=== PATIENT | male | born 1980 | race Caucasian/White ===

== ENCOUNTER 2019-11-06 09:49 | Outpatient (CLI) | payer OTHER, SELFPAY ==
[2019-11-06 10:45] LABS: Blood Urea Nitrogen 20 mg/dL (9-20); Calcium 9.8 mg/dL (8.4-10.2); Carbon Dioxide 33 mmol/L (22-30); Chloride 99 mmol/L (98-107); Estimated Glomerular Filt Rate > 60; Glucose 156 mg/dL (75-110); Potassium 4.3 mmol/L (3.4-5.0); Sodium 137 mmol/L (137-145)
[2019-11-06 11:04] LABS: Creatinine Urine 83.3 mg/dL
[2019-11-06 11:08] LABS: MALB Creatinine Ratio 8.6 mg/g (0-30); Microalbumin Urine Random 7.2 mg/L (0-16.7)
[2019-11-06 11:20] LABS: Free T4 Free Thyroxine 1.11 ng/mL (0.78-2.19)
== END 2019-11-06 09:50 | disposition home or self-care (01) ==
PROVIDERS: Visit Provider Physician Assistant
DX: E03.9 Hypothyroidism, unspecified (principal); E10.65 Type 1 diabetes mellitus with hyperglycemia
CPT/HCPCS: 36415; 80048; 82043; 84439; 84443

== ENCOUNTER 2020-03-06 11:55 | Outpatient (CLI) | payer OTHER, SELFPAY ==
[2020-03-06 13:17] LABS: Free T4 Free Thyroxine 1.04 ng/mL (0.78-2.19)
== END 2020-03-06 11:56 | disposition home or self-care (01) ==
LOC: ANHLAB 11:56
PROVIDERS: Visit Provider Physician Assistant
DX: E03.9 Hypothyroidism, unspecified (principal)
CPT/HCPCS: 36415; 84439; 84443

== ENCOUNTER 2020-09-16 09:11 | Outpatient (CLI) | payer OTHER, SELFPAY ==
[2020-09-16 12:32] LABS: Alanine Aminotransferase 41 U/L (4-50); Albumin Level 4.5 g/dL (3.5-5.1); Alkaline Phosphatase 80 U/L (38-126); Anion Gap 5 mmol/L (8-16); Aspartate Amino Transferase 32 U/L (17-59); Bilirubin,Total 0.8 mg/dL (0.2-1.3); Blood Urea Nitrogen 22 mg/dL (9-20); Calcium 9.8 mg/dL (8.4-10.2); Carbon Dioxide 30 mmol/L (22-30); Chloride 108 mmol/L (98-107); Estimated Glomerular Filt Rate > 60; Glucose 67 mg/dL (75-110); Potassium 4.5 mmol/L (3.4-5.0); Sodium 143 mmol/L (137-145)
[2020-09-16 12:49] LABS: Free T4 Free Thyroxine 0.89 ng/mL (0.78-2.19); Vitamin D 25 Hydroxy 45.3 ng/mL
[2020-09-16 13:02] LABS: Creatinine Urine 159.6 mg/dL
[2020-09-16 13:06] LABS: MALB Creatinine Ratio 5.7 mg/g (0-30); Microalbumin Urine Random 9.1 mg/L (0-16.7)
[2020-09-18 12:32] LABS: Sex Hormone Binding Globulin 33 nmol/L (10-50)
[2020-09-19 11:43] LABS: Testosterone Total 636 ng/dL (250-1100)
== END 2020-09-16 09:12 | disposition home or self-care (01) ==
LOC: ANHWCLAB 09:15
PROVIDERS: Visit Provider Internal Medicine Endocrinology, Diabetes & Metabolism
DX: E03.9 Hypothyroidism, unspecified (principal); E10.65 Type 1 diabetes mellitus with hyperglycemia
CPT/HCPCS: 36415; 80053; 82043; 82306; 84270; 84403; 84439; 84443

== ENCOUNTER 2021-06-22 09:15 | Outpatient (RCR) | payer SELFPAY ==
[2021-05-05 08:00] VITALS: BMI 28.1
== END 2021-07-20 13:08 | disposition home or self-care (01) ==
LOC: ANHDMC 09:15
PROVIDERS: Visit Provider Nurse Practitioner Family
DX: E10.65 Type 1 diabetes mellitus with hyperglycemia (principal); Z71.3 Dietary counseling and surveillance; Z71.89 Other specified counseling
CPT/HCPCS: 97802; G0108

== ENCOUNTER 2021-10-20 09:08 | Outpatient (CLI) | payer OTHER, SELFPAY ==
[2021-10-20 16:45] LABS: Alanine Aminotransferase 31 U/L (6-50); Albumin Level 4.2 g/dL (3.5-5.1); Alkaline Phosphatase 77 U/L (38-126); Anion Gap 8 mmol/L (8-16); Aspartate Amino Transferase 66 U/L (17-59); Bilirubin,Total 1.1 mg/dL (0.2-1.3); Blood Urea Nitrogen 20 mg/dL (9-20); Calcium 9.2 mg/dL (8.4-10.2); Carbon Dioxide 27 mmol/L (22-30); Chloride 105 mmol/L (98-107); Cholesterol 197 mg/dL (0-200); Estimated Glomerular Filt Rate > 60; Glucose 61 mg/dL (65-110); HDL Direct 42 mg/dL; Sodium 140 mmol/L (137-145); Triglycerides 150 mg/dL (<150)
[2021-10-20 16:52] LABS: Creatinine Urine 345.9 mg/dL
[2021-10-20 16:57] LABS: LDL Cholesterol Direct 110 mg/dL; MALB Creatinine Ratio 7.7 mg/g (0-30); Microalbumin Urine Random 26.7 mg/L (0-16.7)
[2021-10-20 17:00] LABS: Free T4 Free Thyroxine 1.18 ng/mL (0.78-2.19)
== END 2021-10-20 09:09 | disposition home or self-care (01) ==
LOC: ANHWCLAB 09:11
PROVIDERS: Referring Provider Nurse Practitioner Family; Visit Provider Nurse Practitioner Family
DX: E10.65 Type 1 diabetes mellitus with hyperglycemia (principal)
CPT/HCPCS: 36415; 80053; 80061; 82043; 84439; 84443

== ENCOUNTER 2022-04-27 08:44 | Outpatient (CLI) | payer OTHER, SELFPAY ==
[2022-04-27 13:04] LABS: Hematocrit 41.2 % (42.0-52.0); Hemoglobin 14.5 g/dL (14.0-18.0); Mean Corpuscular HGB Conc 35.2 g/dl (32-36); Mean Corpuscular Hemoglobin 31.2 pg (26-34); Mean Corpuscular Volume 88.6 fl (80-100); Mean Platelet Volume 9.7 fl (7.4-10.4); Platelet Count Result 244 k/mm3 (150-375); Red Blood Count 4.65 M/mm3 (4.6-6.20); Red Cell Distribution Width 12.4 % (11.5-14.5); White Blood Count 4.7 K/mm3 (4.5-10.0)
[2022-04-27 13:36] LABS: Free T4 Free Thyroxine 0.72 ng/mL (0.78-2.19)
[2022-04-27 13:38] LABS: Creatinine Urine 207.9 mg/dL
[2022-04-27 14:06] LABS: MALB Creatinine Ratio < 2.9 mg/g (0-30); Microalbumin Urine Random < 6.0 mg/L (0-16.7)
== END 2022-04-27 08:45 | disposition home or self-care (01) ==
LOC: ANHWCLAB 08:46
PROVIDERS: Visit Provider Nurse Practitioner Family
DX: E10.69 Type 1 diabetes mellitus with other specified complication (principal); E78.5 Hyperlipidemia, unspecified; E10.65 Type 1 diabetes mellitus with hyperglycemia; E03.9 Hypothyroidism, unspecified
CPT/HCPCS: 36415; 82043; 84439; 84443; 85027

== ENCOUNTER 2023-06-21 12:10 | Outpatient (CLI) | payer OTHER, SELFPAY ==
[2023-06-21 13:18] LABS: Thyroid Stimulating Hormone < 0.015 uIU/mL (0.465-4.680)
[2023-06-21 13:25] LABS: Free T4 Free Thyroxine 2.33 ng/mL (0.78-2.19)
[2023-06-25 12:55] LABS: Testosterone Total 451 ng/dL (250-1100)
[2023-06-25 22:56] LABS: Testosterone Free 67.6 pg/mL (46.0-224.0)
[2023-06-29 11:00] LABS: Immunoglobulin A 173 mg/dL (47-310); TTG IGA AB >250.0 U/mL (<15.0)
== END 2023-06-21 12:11 | disposition home or self-care (01) ==
LOC: ANHLAB 12:11
PROVIDERS: Visit Provider Nurse Practitioner Family
DX: E29.1 Testicular hypofunction (principal); E03.9 Hypothyroidism, unspecified; E10.69 Type 1 diabetes mellitus with other specified complication; K59.00 Constipation, unspecified; R53.83 Other fatigue
CPT/HCPCS: 36415; 82784; 84402; 84403; 84439; 84443; 86364

== ENCOUNTER 2023-07-19 08:31 | Outpatient (CLI) | payer OTHER, SELFPAY ==
[2023-07-19 08:51] LABS: Hematocrit 42.4 % (42.0-52.0); Hemoglobin 14.2 g/dL (14.0-18.0); Mean Corpuscular HGB Conc 33.5 g/dl (32-36); Mean Corpuscular Hemoglobin 28.7 pg (26-34); Mean Corpuscular Volume 85.7 fl (80-100); Mean Platelet Volume 9.3 fl (7.4-10.4); Platelet Count Result 269 k/mm3 (150-375); Red Blood Count 4.95 M/mm3 (4.6-6.20); Red Cell Distribution Width 11.9 % (11.5-14.5); White Blood Count 4.9 K/mm3 (4.5-10.0)
[2023-07-19 09:02] LABS: Alanine Aminotransferase 78 U/L (6-50); Albumin Level 4.2 g/dL (3.5-5.1); Alkaline Phosphatase 80 U/L (38-126); Anion Gap 6 mmol/L (8-16); Aspartate Amino Transferase 47 U/L (17-59); Bilirubin,Total 1.3 mg/dL (0.2-1.3); Blood Urea Nitrogen 23 mg/dL (9-20); Calcium 9.5 mg/dL (8.4-10.2); Carbon Dioxide 28 mmol/L (22-30); Chloride 104 mmol/L (98-107); Estimated Glomerular Filt Rate > 60; Glucose 162 mg/dL (65-110); Sodium 138 mmol/L (137-145)
[2023-07-19 09:05] LABS: Iron 93 ug/dL (49-181)
[2023-07-19 09:13] LABS: Percent Iron Saturation 35 % (20-50)
[2023-07-19 09:18] LABS: Vitamin D 25 Hydroxy 38.4 ng/mL
[2023-07-19 11:26] LABS: Folic Acid 16.2 ng/mL (2.76->20)
[2023-07-21 21:31] LABS: Alpha-Tocopherol 12.5 mg/L (5.7-19.9); Beta-Gamma Tocopherol <1.0 mg/L (<=4.3); Vitamin A 50 mcg/dL (38-98)
== END 2023-07-19 08:32 | disposition home or self-care (01) ==
LOC: ANHLAB 08:31
PROVIDERS: Visit Provider Nurse Practitioner Family
DX: R89.4 Abnormal immunological findings in specimens from other organs, systems and tissues (principal)
CPT/HCPCS: 36415; 80053; 82306; 82607; 82728; 82746; 83540; 83550; 84446; 84590; 85027

== ENCOUNTER 2023-08-19 09:30 | Outpatient (CLI) | payer OTHER, SELFPAY ==
[2023-08-19 10:28] LABS: Thyroid Stimulating Hormone 0.484 uIU/mL (0.465-4.680)
[2023-08-19 10:41] LABS: Free T4 Free Thyroxine 1.16 ng/mL (0.78-2.19)
== END 2023-08-19 09:31 | disposition home or self-care (01) ==
LOC: ANHLAB 09:31
PROVIDERS: Visit Provider Nurse Practitioner Family
DX: E03.9 Hypothyroidism, unspecified (principal)
CPT/HCPCS: 36415; 84439; 84443

== ENCOUNTER 2023-08-24 05:55 | Day surgery (SDC) | payer OTHER, SELFPAY ==
[2023-07-22 14:38] VITALS: BMI 29.9
[2023-08-03 13:52] VITALS: BMI 29.9
[2023-08-24 07:21] VITALS: BP 141/100; PULSE 80; RESP 18; TEMP 36.6; O2SAT 99
[2023-08-24 07:22] VITALS: BMI 29.5
[2023-08-24 07:38] LABS: Glucose Point of Care 178 mg/dl (65-105)
[2023-08-24] MEDS: LACTATED RINGERS 1,000 ML 150 ML IV CONT (07:40)
--- NOTE | 2023-08-24 07:40 | SUR.PREOP ---
PT WEARING INSULIN PUMP, GLUCOSE MONITOR, AND ANKLE MONITOR.
--- NOTE | 2023-08-24 08:29 | WPDANESEPPF ---
Anes - Initial Pre Proc Eval Procedure: Operation Date: 08/24/23 08:30 Proposed Procedures p Esophagogastroduodenoscopy - Jorge Craig MD Date/Time: 08/24/23 08:29 Surgeon: Jorge Craig MD Pre Op Diagnosis: Abnormal immunological findings in specimens from Patient Data Age: 43 Gender: M Height: 1.73 m Weight: 88.1 kg Last Vital Signs Temp 36.6 C 08/24/23 07:21 Pulse 80 08/24/23 07:21 Resp 18 08/24/23 07:21 BP 141/100 H 08/24/23 07:21 Pulse Ox 99 08/24/23 07:21 O2 Del Method Room Air 08/24/23 07:21 Allergies Allergy/AdvReac Type Severity Reaction Status Date / Time No Known Allergies Allergy Verified 08/24/23 07:16 Home Medications Medication Instructions Recorded Confirmed Type subcutaneous insulin pump (t:slim #1 ea 11/14/19 08/03/23 History X2 Insulin Pump) blood sugar diagnostic (ReliOn #500 ea 03/06/20 08/03/23 Rx Prime Test Strips) blood-glucose meter,continuous #1 ea 01/01/21 08/03/23 Rx (Dexcom G6 Director Of Personnel) blood-glucose sensor (Dexcom G6 #9 ea 07/26/22 08/03/23 Rx Sensor device) blood-glucose transmitter (Dexcom #1 ea 07/26/22 08/03/23 Rx G6 Transmitter device) glucagon 3 mg/actuation nasal 3 mg intranasal ONCE PRN 07/26/22 08/24/23 Rx spray (Baqsimi) hypoglycemia #1 ea insulin lispro 100 unit/mL 80 unit (0.8 mL) continuous 10/26/22 08/24/23 Rx subcutaneous solution (Humalog subcutaneous infusion DAILY #80 mL U-100 Insulin) lisinopril 10 mg tablet 10 mg PO DAILY #90 tabs 01/27/23 08/24/23 Rx levothyroxine 200 mcg capsule 200 mcg PO DAILY #30 caps 06/21/23 08/24/23 Rx blood-glucose meter,continuous #1 ea 07/01/23 08/03/23 Rx (Dexcom G7 Director Of Personnel) blood-glucose sensor (Dexcom G7 #9 ea 02/09/24 03/13/24 Rx Sensor device) rosuvastatin 10 mg tablet See Rx Instructions .Route 08/02/23 08/24/23 Rx .COMPLEX #90 tabs Laboratory Tests 08/24/23 07:36 POC Capillary Glucose 178 H mg/dl (65-105) Patient hx anesthesia problems: none Family hx anesthesia problems: none Results Review: All pre-operative results and documents have been reviewed as part of the pre-operative evaluation. [facility] Past Medical History Medical History Acquired hypothyroidism High blood pressure Type 1 diabetes mellitus with hyperglycemia, with long-term current use of insulin Surgical History Surgical History Hx of knee surgery ACL/meniscus/ left knee Family History Family History Other Diabetes mellitus Family history of thyroid disease Hypertension Social History Social History Smoking status: Never smoker Alcohol intake: never Alcohol use details: 1-2 times per month Substance use: never Substance use type: does not use Lack of Transportation: No Lack of Food: Sometimes True Current Housing: I Have Housing Concerned About Future Housing: No Difficulty Paying Gas/Electric Bills: No Difficulty Paying for Meds: No Currently Unemployed: No Education: High School Diploma/GED Difficulty w/ Childcare or Family Care: No Living arrangements: alone Spiritual care concerns: No Anes - Eval Final PreProcedure Day of Procedure 08/24/23 08:29 Patient weight: overweight Heart: regular rate and rhythm Lungs: clear to auscultation Airway: Mallampati scale class II Neurological: alert and oriented Last oral intake: >/= 8 hours ASA classification: III Emergent: no Anesthetic plan: proceed Anesthesia type and monitoring: general GIVS and standard monitoring Results Review: All pre-operative results and documents have been reviewed as part of the pre-operative evaluation. Informed Consent: The patient's anesthetic plan and its attendant risks and benefits were discu
--- NOTE | 2023-08-24 08:36 | PM.HPGS ---
History of Present Illness History of Present Illness Consent: Risks, benefits, and alternatives have been discussed and questions answered. Patient agrees to proceed with procedure. Chief complaint: Abnormal immunological findings in specimens from Narrative: Agus Medina is a 43 year old male presents for EGD. Has a history of diabetes. He was seen by endocrinology. Lab testing was performed which revealed an abnormal tTG antibody suggesting possible celiac disease. Patient is referred for small bowel biopsy. Patient denies abdominal pain. He denies diarrhea. He Does admit to some bloating after eating. Bowel habits are normal. Family history not contributory. Review of Systems Review of Systems: All systems reviewed & are unremarkable except as noted in HPI and below PMFSH Past Medical History Medical History Acquired hypothyroidism High blood pressure Type 1 diabetes mellitus with hyperglycemia, with long-term current use of insulin Surgical History Surgical History Hx of knee surgery ACL/meniscus/ left knee Family History Family History Other Diabetes mellitus Family history of thyroid disease Hypertension Social History Social History Smoking status: Never smoker Alcohol intake: never Alcohol use details: 1-2 times per month Substance use: never Substance use type: does not use Lack of Transportation: No Lack of Food: Sometimes True Current Housing: I Have Housing Concerned About Future Housing: No Difficulty Paying Gas/Electric Bills: No Difficulty Paying for Meds: No Currently Unemployed: No Education: High School Diploma/GED Difficulty w/ Childcare or Family Care: No Living arrangements: alone Spiritual care concerns: No Meds Home Medications and Allergies Home Medications Medication Instructions Recorded Confirmed Type subcutaneous insulin pump (t:slim #1 ea 11/14/19 08/03/23 History X2 Insulin Pump) blood sugar diagnostic (ReliOn #500 ea 03/06/20 08/03/23 Rx Prime Test Strips) blood-glucose meter,continuous #1 ea 01/01/21 08/03/23 Rx (Dexcom G6 [employer] Operator) blood-glucose sensor (Dexcom G6 #9 ea 07/26/22 08/03/23 Rx Sensor device) blood-glucose transmitter (Dexcom #1 ea 07/26/22 08/03/23 Rx G6 Transmitter device) glucagon 3 mg/actuation nasal 3 mg intranasal ONCE PRN 07/26/22 08/24/23 Rx spray (Baqsimi) hypoglycemia #1 ea insulin lispro 100 unit/mL 80 unit (0.8 mL) continuous 10/26/22 08/24/23 Rx subcutaneous solution (Humalog subcutaneous infusion DAILY #80 mL U-100 Insulin) lisinopril 10 mg tablet 10 mg PO DAILY #90 tabs 01/27/23 08/24/23 Rx levothyroxine 200 mcg capsule 200 mcg PO DAILY #30 caps 06/21/23 08/24/23 Rx blood-glucose meter,continuous #1 ea 07/01/23 08/03/23 Rx (Dexcom G7 [employer]) blood-glucose sensor (Dexcom G7 #9 ea 07/01/23 08/03/23 Rx Sensor device) rosuvastatin 10 mg tablet See Rx Instructions .Route 08/02/23 08/24/23 Rx .COMPLEX #90 tabs Allergies Allergy/AdvReac Type Severity Reaction Status Date / Time No Known Allergies Allergy Verified 08/24/23 07:16 Vital Signs Vital Signs - 24 hr 08/24/23 07:21 Temperature 98 F Pulse Rate 80 Respiratory Rate 18 Blood Pressure 141/100 H Pulse Oximetry 99 Oxygen Delivery Room Air Exam Narrative: Physical exam reveals patient to be alert. Vital signs stable. HEENT exam is unremarkable. Patient is anicteric. Lungs are clear to auscultation and to percussion. Is without murmur or extra sounds. Abdomen bowel sounds are present soft nontender with no organomegaly. Digital external rectal exam normal. Assessment and Plan Assessment and plan (1) Abnormal celiac antibody panel: Code(s):
[2023-08-24 08:56] VITALS: BP 115/71; PULSE 76; RESP 16; O2SAT 97
[2023-08-24 09:06] VITALS: BP 110/73; PULSE 76; RESP 16; O2SAT 96
[2023-08-24 09:16] VITALS: BP 110/71; PULSE 85; RESP 16; O2SAT 99
--- NOTE | 2023-08-24 09:28 | WPDANESPN ---
Anes - Prog Note Post-Op Date/Time: 08/24/23 09:28 Cardiovascular status: normal Respiratory status: normal Airway patency: baseline Mental status: baseline Post-Op hydration status: normal Vital Signs: Last Vital Signs Temp 36.6 C 08/24/23 07:21 Pulse 85 08/24/23 09:16 Resp 16 08/24/23 09:16 BP 110/71 08/24/23 09:16 Pulse Ox 99 08/24/23 09:16 O2 Del Method Room Air 08/24/23 09:16 Pain Score (VAS): 0 I/O: Intake & Output 08/23/23 08/24/23 08/24/23 23:59 07:59 15:59 Intake Total 500 Balance 500 08/24/23 07:36 POC Capillary Glucose 178 H Patient Feedback: Patient satisfied with anesthetic care.
== END 2023-08-24 09:33 | disposition home or self-care (01) ==
PROVIDERS: Visit Provider Internal Medicine Gastroenterology
PROC: 0DJ08ZZ Inspection of Upper Intestinal Tract, Via Natural or Artificial Opening Endoscopic (ICD-10-PCS; CPT 43235; principal; 2023-08-24 08:30)
DX: R89.4 Abnormal immunological findings in specimens from other organs, systems and tissues (principal); K31.89 Other diseases of stomach and duodenum
CPT/HCPCS: 43239

== ENCOUNTER 2023-08-24 07:00 | Outpatient (NON) | payer OTHER, SELFPAY | END 2023-08-24 07:01 | disposition home or self-care (01) | PROVIDERS: Visit Provider Internal Medicine Gastroenterology | DX: R89.4 Abnormal immunological findings in specimens from other organs, systems and tissues (principal) | CPT/HCPCS: 88305 ==

== ENCOUNTER 2023-12-08 09:50 | Outpatient (CLI) | payer OTHER, SELFPAY ==
[2023-12-08 10:42] LABS: Creatinine Urine 174.4 mg/dL
[2023-12-08 10:47] LABS: MALB Creatinine Ratio < 3.4 mg/g (0-30); Microalbumin Urine Random < 6.0 mg/L (0-16.7)
[2023-12-08 11:01] LABS: Alanine Aminotransferase 58 U/L (6-50); Albumin Level 4.3 g/dL (3.5-5.1); Alkaline Phosphatase 89 U/L (38-126); Anion Gap 8 mmol/L (4-12); Aspartate Amino Transferase 47 U/L (17-59); Blood Urea Nitrogen 18 mg/dL (9-20); Calcium 9.2 mg/dL (8.4-10.2); Carbon Dioxide 29 mmol/L (22-30); Chloride 103 mmol/L (98-107); Cholesterol 200 mg/dL (0-200); Estimated Glomerular Filt Rate > 60; Glucose 53 mg/dL (65-110); HDL Direct 54 mg/dL; Potassium 3.6 mmol/L (3.4-5.0); Sodium 140 mmol/L (137-145); Triglycerides 177 mg/dL (<150)
[2023-12-08 11:08] LABS: LDL Cholesterol Direct 115 mg/dL
== END 2023-12-08 09:51 | disposition home or self-care (01) ==
LOC: ANHLAB 09:52
PROVIDERS: Visit Provider Internal Medicine Endocrinology, Diabetes & Metabolism
DX: E10.65 Type 1 diabetes mellitus with hyperglycemia (principal); E03.9 Hypothyroidism, unspecified; R79.89 Other specified abnormal findings of blood chemistry
CPT/HCPCS: 36415; 80053; 80061; 82043; 84443

== ENCOUNTER 2024-03-14 09:04 | Outpatient (CLI) | payer OTHER, SELFPAY | END 2024-03-14 09:05 | disposition home or self-care (01) | LOC: ANHLAB 09:05 | PROVIDERS: Visit Provider Internal Medicine Endocrinology, Diabetes & Metabolism | DX: E03.9 Hypothyroidism, unspecified (principal) | CPT/HCPCS: 36415; 84439; 84443 ==

== ENCOUNTER 2025-01-09 12:15 | Outpatient (CLI) | payer OTHER, SELFPAY ==
--- OUTSIDE RECORDS SUMMARY | 2025-01-09 11:26 | XMS_ITS | Continuity of Care Document ---
Author Name [facility] Organization [facility] Care Team Providers Care Fisheries Diver Name Role Phone [facility] Unavailable Unavailable Problems Combined list of problems from Department of Defense and Veterans Affairs facilities. It does not include entries that were removed or entered in error. Problem Status Onset Date Problem Type Date of Resolution Comments Source HYPOTHYROIDISM Active Condition DoD COMMON COLD Inactive Condition DoD FATIGUE Active Condition DoD PREHYPERTENSION Active Condition DoD ALLERGIC RHINITIS Active Condition DoD Administrative Evaluation Services Inactive Condition DoD visit for: administrative purpose Inactive Condition DoD current diet needs improvement Inactive Condition [facility] Patient Education - Dietary Active Condition DoD joint pain, localized in the shoulder Active Condition DoD joint pain, localized in the left shoulder Active Condition 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 DoD MARITAL PROBLEM Inactive Condition DoD joint pain, localized in the knee Active Condition [facility] Observation For Abuse / Neglect Inactive Condition DoD HYPERLIPIDEMIA Active Condition DoD Vaccines Prophylactic Need Against DTP Active Condition DoD FOLLICULITIS Active Condition [facility] visit for: issue repeat prescription for medication Inactive Condition DoD joint pain fingers Active Condition DoD ADJUSTMENT DISORDER Active Condition Do D Blood Pressure Isolated Elevated Active Condition [facility] visit for: laboratory Active Condition [facility] visit for: issue repeat prescription Inactive Condition [facility] 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 Push fluids, sx relief as needed. Reviewed sick day procedures for insulin. DoD visit for: follow-up exam Active Condition return to contact wear when sxs fully resolved. DoD CONJUNCTIVITIS ACUTE RIGHT EYE Inactive Condition Patient to follow up in 2 days for repeat examination of eye. patient has thrown out right contact. Pt prefers to have antibiotic called into [facility] pharmacy. 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 discussed importance of good control. offered nutrition consult -- declines at this time.f/u q 6 months for labs and f/u DoD GASTROENTERITIS VIRAL Active Condition not clinically dehydrated and condition overall improving, taking po fluids but not food yet; counseled pt and spouse about being careful with bg's; ok to cont lantus as long as freq monitoring bg's, advised holding off on ssi until he sees if he can tole DoD Allergies, Adverse Reactions, Alerts Combined list of allergies from Department of Defense and Veterans Affairs facilities. It does not include entries that were removed or entered in error. Substance Category Reaction Severity Reaction type Status Date Reported Comments Source NO OUTPUT FOR NCID 111120 Drug allergy (disorder) active 10/30/[address] [place] [address]) Encounters Combined list of: 1) Encounters from Department of Veterans Affairs facilities going backup to the last 18 months, not all [place] inpatient encounters are included; 2) Encounters from the Department of [place] facilities going backup to 280 months. Location Location Details Encounter Type Encounter Number Reason For Visit Attending Provider ADM Date DC Date Status Disposition Source [address] [place] [address])([facility] Non-GME FHI1) OUTPATIENT [id number] diabeti c JOVAN LR 01/18 Released w/o Limitations [address] [place] [address])(F amily Practic e Non-GME FHI1) [address] [place] [address])([facility] Non-GME FHI1) TELE CONSULT [id number] Referra l ZACH Kent 02/[address] [place] [address] [facility])(F amily Practic e Non-GME FHI1) [address] [place] [address] [place])(Sco tt [facility] FAMRES Tm Blue) TELE CONSULT [id number] refill TRAVIS ACOSTA 02/[address] [place] [address])(S cott [facility] Tm Blue) [address] [place] [address])(Sco tt [facility] Fam Res Tm Green) OUTPATIENT [id number] nvd x 10 hrs--FOZIA Mae 06/07 Released w/o Limitations [address] [place] [address])(S cott [facility] Fam Res Tm Green) [address] [place] [address] [place] BISIVonnie ([facility])(Sco tt [facility] Tm Blue) TELE CONSULT [id number] med refill RODRIGO GE 06/[address] [place] [address] [place] M[facility]AN ([facility])(S cott OF FAMRES Tm Blue) [address] [place] [address] [place] [facility] ([facility])(Sco tt [facility] Tm Blue) OUTPATIENT [id number] DIABETE TRAVIS PETERS 06/29 Released w/o Limitations [address] [place] [address] [place] [facility])(S cott OF FAMRES Tm Blue) [address] [place] [address] [place] [facility])(Sco tt [facility] FAM[facility] Tm Blue) TELE CONSULT [id number] FYI - Refills Authori TRAVIS Flanagan 09/[address] [place] [address] [place] [facility] ([facility])(S cott [facility] FAM[facility] Tm Blue) [address] [place] [address] [place] [facility])(Opt ometry) OUTPATIENT [id number] ey exam BRENDA ROD 02/14 Released w/o Limitations [address] [place] [address] [place] [facility])(O ptometr y) [address] [place] [address] [place] [facility])(Sco tt [facility] FAM[facility] Tm Blue) OUTPATIENT [id number] 580 2275cel l# rt eye waterin g, hurting and sensiti ve to light AROLDO ZURITA 03/27 Released w/o Limitations [address] [place] [address] [place] [facility] ([facility])(S cott [facility] Tm Blue) [address] [place] [address] [place] [facility])(Sco tt [facility] FAM[facility] Tm Blue) OUTPATIENT [id number] f/u right eye TRVAIS ACOSTA 03/29 Released w/o Limitations [address] [place] [address] [place] MATHEWSB ([facility])(S cott [facility] FAM[facility] Tm Blue) [address] [place] [address] [place] [employer] [facility])([facility]co tt [facility] FAMRES Tm Blue) OUTPATIENT [id number] cold symptom s FRANCISCO NAGY 06/14 Released w/o Limitations [address] [place] [address] [place] [facility] ([facility])(S cott [facility] Tm Blue) [address] [place] [address] [place] [facility])(Sco tt [facility] FAM[facility] Tm Blue) TELE CONSULT [id number] FYI - Refill Request TRAVIS ACOSTA 06/[address] [place] [address] [place] [facility] ([facility])(S cott [facility] Tm Blue) [address] [place] [address] [place] [facility] ([facility])(Sco tt [facility] FAM[facility] Tm Blue[facility] OUTPATIENT [id number] diabeti c/med refill FOZIA MCNAIR 09/03 Released w/o Limitations [address] [place] [address] [place] [facility] ([facility])(S cott [facility] FAM[facility] Tm Blue) [address] [place] [address] [place] [facility] ([facility])(Sco tt [facility] FAM[facility] Tm Blue) OUTPATIENT [id number] knee injury NIVIA FOZIA Shelton 10/29 Released with Work/Duty Limitations [address] [place] [address] [place] [facility] ([facility])(S cott [facility] Tm Blue) [address] [place] [address] [place] [facility])(Opt ometry) OUTPATIENT [id number] routine eye exam... .wear contact s.....[phone] SUJIT MENDEZ 03/21 Released w/o Limitations [address] [place] [address] [place] [facility] ([facility])(O ptometr y) [address] [place] [address] [place] [facility] ([facility])(Sco tt [facility] Fam Res Tm Green) TELE CONSULT [id number] Supply reorder - PCM SONDRA Denson 05/[address] [place] [address] [place] [facility] ([facility])(S cott [facility] Fam Res Tm Green) [address] [place] [address] [place] [facility])(Sco tt [facility] Tm Blue) TELE CONSULT [id number] med SONDRA Schaffer 06/[address] [place] [address] [place] [facility])(S cott [facility] FAM[facility] Tm Blue) [address] [place] [address] [place] [facility])(Sco tt [facility] FAM[facility] Tm Blue) OUTPATIENT [id number] follow up on diabete s [phone] TRAVIS ACOSTA 08/27 Released w/o Limitations [address] [place] [address] [place] [facility] ([facility])(S cott [facility] Tm Blue) [address] [place] [address] [place] [facility])(Sco tt [facility] Fam Res Tm Green) OUTPATIENT [id number] swollen painful hand [phone] SHONDA SEN 09/09 Released w/o Limitations [address] [place] [address] [place] [facility] ([facility])(S cott [facility] Fam Res Tm Green) [address] [place] [address] [place] [facility] ([facility])(Sco tt [facility] Fam Res Tm Green) TELE CONSULT [id number] Medicat ion refill - PCM ZACH Acosta 11/[address] [place] [address] [place] [facility] ([facility])(S cott OF Fam Res Tm Green) [address] [place] [address] [place] [facility]HEWSB ([facility])(Sco tt [facility] Tm Blue) OUTPATIENT [id number] Infecte d skin on neck [phone] JOSEPH XAVIER 12/02 Released w/o Limitations [address] [place] [address] [place] [facility])(S cott [facility] Tm Blue) [address] [place] [address] [facility])(Sco tt [facility] FAM[facility] Tm Blue) OUTPATIENT [id number] f/u to FOZIA ARGUELLO 12/06 Released w/o Limitations [address] [place] [address] [place] [facility])(S cott [facility] FAM[facility] Tm Blue) [address] [place] [address] [place] [facility])([facility]co tt [facility] Fam Res Tm Green) OUTPATIENT [id number] knee pain SHAHAB ROCHA 05/07 Released w/o Limitations [address] [place] [address] [place] [facility])(S cott [facility] Fam Res Tm Green) [address] [place] [address] [place] [facility])(Sco tt [facility] FAM[facility] Tm Blue) TELE CONSULT [id number] Prior Authori zation - PCM Dr Alfaro (seen by Dr Rocha) SHAHAB ROCHA 05/[address] [place] [address] [place] [facility])(S cott [facility] FAM[facility] Tm Blue) [address] [place] [address] [place] [facility])(Opt ometry) OUTPATIENT [id number] routine eye exam SUJIT MENDEZ 05/21 Released w/o Limitations [address] [place] [address] [place] [facility] ([facility])(O ptometr y) [address] [place] [address] [place] [facility])(Sco tt [facility] Fam Res Tm Green) TELE CONSULT [id number] med refill FRANCISCO NAGY 06/[address] [place] [address] [place] [facility])(S cott [facility] Fam Res Tm Green) [address] [place] [address] [place] [facility])(Sco tt [facility] Fam Res Tm Green) TELE CONSULT [id number] med refill DRAGAN ALFARO 09/03 [facility] [place] [facility] ([facility])(S cott [facility] Fam Res Tm Green) [facility] [place] [facility] ([facility])(Sco tt [facility] Fam Res Tm Green) TELE CONSULT [id number] med refill DRAGAN ALFARO 09/03 [facility] Medical [facility] [place] [facility] ([facility])(S cott [facility] Fam Res Tm Green) [facility] Medical [facility] [place] [facility])([facility]co tt [facility] Fam Res Tm Green) OUTPATIENT [id number] diabeti c check up JOSEFINASHAHAB 11/18 Released w/o Limitations [facility] Medical [facility] [place] [facility] ([facility])(S cott [facility] Fam Res Tm Green) [facility] Medical [facility] [place] [facility])([facility]co tt [facility] Fam Res Tm Green) OUTPATIENT [id number] F/U diabete s [phone] DRAGAN ALFARO 06/09 Released w/o Limitations [facility] Medical [facility] [place] [facility])(S cott [facility] Fam Res Tm Green) [facility] [place] [facility])(Sco tt [facility] Fam Res Tm Green) OUTPATIENT [id number] f/u labs/mr hernandez JOSEFINASHAHAB 07/14 Released w/o Limitations [address] [place] [address] [place] [facility])(S [facility] Fam Res Tm Green) [facility]([address] [facility] ) TELE CONSULT [id number] insulin med refill SARAH MCGILL 11/25 [facility]([address] [facility] Affilia te) [facility] Medical [facility]([address] [place] [address] 5) OUTPATIENT [id number] initial PCM appt/di abetic pt KEITH ZAMBRANO 12/28 Released w/o Limitations [facility] Medical [facility](8 [facility] 5) [facility] Medical [facility](87 [facility]) TELE CONSULT [id number] DM Assessm ent JOSÉ LY 12/31 [facility] Medical [facility](8 7 Disease Managem ent) [address] [place] [address]( [facility]) OUTPATIENT [id number] Diabete s Nutriti on LEANNE ALVARADO 01/05 Released w/o Limitations [address] [place] [address](8 7 [facility]) [address] [place] [address](87 [facility] 5) TELE CONSULT [id number] Labs KEITH ZAMBRANO 01/[address] [place] [address](8 7 [facility] 5) [address] [place] [address] [place] [facility]) OUTPATIENT [id number] cold symptom s [id number] NUNU, MARC Miya 08/30 Released w/o Limitations [address] [place] [address] [place] [facility])(S [facility] Blue) [address] [place] [address] [place] Vonnie [facility])(Sco tt [facility] Blue) TELE CONSULT [id number] Notes Entered by: SONIA BROWNE CIA 01 Sep 2011 1305 ------- ------- ------- ------- -- Med refill - [facility] ISAI TABARES 08/[address] [place] [address] [place] [facility] Blue) [address] [place] [address] [place] Vonnie [facility])(Sco tt Disease Managemen t) TELE CONSULT [id number] Notes Entered by: WILLOW LAZO 27 Jun 2012 1046 ------- ------- ------- ------- -- Disease Managem ent - Sweigar t PCM SURYA LUCAS 06/[address] [place] [address] [place] [facility])(S cott Disease Managem ent) [address] [place] [address] [place] [facility]nie [facility])(S[facility] Blue) OUTPATIENT [id number] f/u diabete s check/l ab results /meds modific ation LISA WAYNE 07/12 Released w/o Limitations [address] [place] [address] [place] [facility])(S cott [facility] FAM[facility] Tm Blue) [address] [place] [address] [place] [facility])(Sco tt [facility] Res Tm Green) TELE CONSULT [id number] Notes Entered by: WILLOW LAZO 14 Sep 2012 1425 ------- ------- ------- ------- -- Diabete s Managem ent Update - Sweigar t PCM WILLOW LUCASPEACE Ramirez 09/[address] [place] [address] [place] [facility])(S cott [facility] Fam Res Tm Green) [address] [place] [address] [place] [facility])(Sco tt [facility] Res Tm Green) TELE CONSULT [id number] Notes Entered by: WILLOW LAZO 24 Oct 2012 1608 ------- ------- ------- ------- -- Record Review Diabete s Managem ent - PCM Sweigar t LANCE SURYA A 10/[address] [place] [address] [place] [facility])(S cott [facility] Fam Res Tm Green) [address] [place] [address] [place] [facility])(S[facility] Blue) OUTPATIENT [id number] f/u diabete s check/d iscuss lab results ,left knee pain f/u. LISA WAYNE 11/07 Released w/o Limitations [address] [place] [address] [place] [facility])(S cott [facility] FAMRES Tm Blue) [address] [place] [address] [place] [facility])(Sco tt [facility] Res Tm Green) TELE CONSULT [id number] Notes Entered by: WILLOW LAZO 15 Nov 2012 1034 ------- ------- ------- ------- -- Diabete s managem ent f/u - PCM SURYA Mccauley 11/[address] [place] [address] [place] [facility] ([facility])(S cott [facility] Fam Res Tm Green) [address] [place] [address] [place] [facility])(Sco tt [facility] FAMRES Tm Blue) OUTPATIENT [id number] f/u diabete s check/d iscuss lab results PAULINE CASTANEDA 12/07 Released w/o Limitations [address] [place] [address] [place] [facility]IB ([facility])(S cott [facility] FAM[facility] Tm Blue) [address] [place] [address] [place] [employer] [facility])(Sco tt [facility] FAMRES Tm Blue) TELE CONSULT [id number] Notes Entered by: MARY OSMAN 26 Mar 2013 0823 ------- ------- ------- ------- -- Retro MARY Amaro 03/[address] [place] [address])(S cott [facility] FAMRES Tm Blue) [address] [place] [address])(Sco tt [facility] FAMRES Tm Blue) TELE CONSULT [id number] Notes Entered by: LICHA IBANEZ 27 Mar 2013 1149 ------- ------- ------- ------- -- Medicat ion renewal - Luis Angel - PAULINE CASTANEDA 03/[address] [place] [address])(S cott [facility] FAMRES Tm Blue) [address] [place] [address])(Sco tt [facility] FAMRES Tm Blue) TELE CONSULT [id number] Notes Entered by: MELVA GONZALEZ 28 Mar 2013 1236 ------- ------- ------- ------- -- Med refill/ luis angel / PILY IVORY 03/[address] [place] [address])(S cott [facility] FAM[facility] Tm Blue) [address] [place] [address])(Sco tt [facility] FAMRES Tm Blue) OUTPATIENT [id number] f/u diabete s PAULINE CASTANEDA 04/09 Released w/o Limitations [address] [place] [address])(S cott [facility] FAMRES Tm Blue) [address] [place] [address])(Sco tt [facility] FAMRES Tm Blue) OUTPATIENT [id number] follow up for labs, diabete s [id number] MARIA LUISA PICKARD 05/08 Released w/o Limitations [address] [place] [address])(S cott [facility] FAMRES Tm Blue) [address] [place] [address])(Sco tt [place] Fam Res Tm Gold) TELE CONSULT [id number] Notes Entered by: RADHA LUONG 13 Jun 2013 1440 ------- ------- ------- ------- -- Med Refill- Luis Angel / FOZIA MENDEZ 06/[address] [place] [address])(S [facility] Fam Res Tm Gold) [address] [place] [address])(Sco [facility] Fam Res Tm Gold) TELE CONSULT [id number] Notes Entered by: JANY SIMS 02 Jul 2013 1103 ------- ------- ------- ------- -- Follow up lab request Luis Angel PAULINE CASTANEDA 07/[address] [place] [address])(S [facility] Fam Res Tm Gold) [address] [place] [address])([facility] Fam Res Tm Gold) OUTPATIENT [id number] 3mo diabete s check up/618. [phone] PAULINE CASTANEDA 07/13 Released w/o Limitations [address] [place] [address])(S [facility] Fam Res Tm Gold) [address] [place] [address])(Lisa alejandre [facility] [place] Disease [facility]) TELE CONSULT [id number] Notes Entered by: RAMONA QUIGLEY 26 Nov 2013 1121 ------- ------- ------- ------- -- Diabete s Managem ent RAMONA QUIGLEY 11/26 Other Not Elsewhere Classified [address] [place] [address])(Vonnie gilbert [facility] – [place] Disease [facility]) Procedures Combined list of: 1) Procedures from Department of Veterans Affairs facilities going back up to thelast 18 months, not all VA non-surgical procedures are included; 2) All procedures from the Department of Defense facilities. Procedure Procedure Type Code Date Perfomer [facility] e Disease management program; initial a e ment and initiation of the program 4 RAMONA QUIGLEY [facility] Non-Physician Phone Call To Patient/Provider Brief (5-10min) Non-Physician Phone Call To Patient/Provider Brief (5-10min) [id number] [phone] FOZIA MENDEZ [facility] Non-Physician Phone Call To Pt/Provider Lengthy (21-30 min) Non-Physician Phone Call To Pt/Provider Lengthy (21-30 min) [id number] 3 SURYA LUCAS [facility] Non-Physician Phone Call To Pt/Provider Intermed (11-20 min) Non-Physician Phone Call To Pt/Provider Intermed (11-20 min) [id number] 2 ISAI TABARES [facility] Medical Nutrition Therapy Group (2 or More Individual(s)) Medical Nutrition Therapy Group (2 or More Individual(s)) [id number] 1 LEANNE ALVARADO [facility] Prescription & Fitting Bilateral Corneal Lenses (Not Aphakia Prescription & Fitting Bilateral Corneal Lenses (Not Aphakia [id number] 9 ANDREASUJIT W Janneth Diabetic indicator; retinal eye exam, dilated, bilateral 9 ANDREASUJIT W DoD Determination Of Refractive State Determination Of Refractive State [id number] 9 ANDREASUJIT W Ligandal Visual Buitrago Test Intermediate Examination Visual Buitrago Test Intermediate Examination 39950 9 SUJIT MENDEZ W DoD Ophthalmological Prior Patient Start Comprehensive Care Ophthalmological Prior Patient Start Comprehensive Care 22043 9 ADNREA, SUJIT W Ligandal Tdap Vaccine Tdap Vaccine 14197 9 FOZIA MCNAIR [facility] Immunization Administration One Vaccine Immunization Administration One Vaccine 26102 9 FOZIA MCNAIR [facility] Orthopedic Splinting Finger Static Orthopedic Splinting Finger Static 33760 9 SHONDA SEN [facility] Prescription & Fitting Bilateral Corneal Lenses (Not Aphakia Prescription & Fitting Bilateral Corneal Lenses (Not Aphakia [id number] 8 ANDREASUJIT W DoD Determination Of Refractive State Determination Of Refractive State 48995 8 ANDREA, SUJIT W Ligandal Visual Buitrago Test Intermediate Examination Visual Buitrago Test Intermediate Examination 57825 8 ANDREA, SUJIT W DoD Ophthalmological Prior Patient Start Comprehensive Care Ophthalmological Prior Patient Start Comprehensive Care 30105 8 ANDREA, SUJIT W DoD Diabetic indicator; retinal eye exam, dilated, bilateral 8 ANDREA, SUJIT W [facility] Rapid Antigen Identification Streptococcus Group A Beta Hemolytic Rapid Antigen Identification Streptococcus Group A Beta Hemolytic 33993 8 FRANCISCO NAGY [facility] Visual Buitrago Test Limited Examination Visual Buitrago Test Limited Examination 14298 7 BRENDA ROD [facility] Ophthalmological New Patient Start Comprehensive Care Ophthalmological New Patient Start Comprehensive Care 54198 7 BRENDA ROD [facility] Prescription & Fitting Bilateral Corneal Lenses (Not Aphakia Prescription & Fitting Bilateral Corneal Lenses (Not Aphakia 43115 7 BRENDA ROD [facility] Determination Of Refractive State Determination Of Refractive State 87123 7 BRENDA ROD [facility] Social History Combined list of available smoking, tobacco, and other social history from Department of Defense and Veterans Affairs facilities. Social History Type Response Date Comment Sourc e This section is an empty social history section. [facility]
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
--- OUTSIDE RECORDS SUMMARY | 2025-01-09 12:23 | XMS_ITS | Clinical Summary ---
Author Organization [facility] Address [facility] [place] [address] Care Team Providers Care Heat Regulator Name Role Phone None, Provider MD Primary Care Provider Unavaila ble Allergies No known active allergies Medications insulin lispro 100 UNIT/ML injection (VIAL) Inject into the skin see administration instructions. Per sliding scale 0 Active EUTHYROX 112 MCG tablet Take 224 mcg by mouth every morning. 0 Active simvastatin 5 MG tablet Take 5 mg by mouth daily. 0 Active Immunizations Immunization Administration Dates Next Due Tdap (Boostrix) 11/02/2021 Social History Tobacco Use Types Packs/Day Years Used Date Smoking Tobacco: Never Smokeless Tobacco: Never Alcohol Use Standard Drinks/Week Comments Yes 0 (1 standard drink = 0.6 oz pur e alcohol) (2xmonth) AUDIT-C Answer Date Recorded Frequency of Alcohol Consumption Never 06/05/2019 Average Number of Drinks Not on file 020 Frequency of Binge Drinking Not on file 05/23 Sex and Gender Information Value Date Recorded Sex Assigned at Not on file Legal Sex Male 7:04 PM CDT Gender Identity Not on file Sexual Orientation Not on file Last Filed Vital Signs Vital Sign Reading Time Taken Comments Blood Pressure 160/93 11/02/2021 4:50 PM CDT Pulse 80 11/02/2021 4:50 PM CDT Temperature 36.9 C (98.4 F) 11/02/2021 4:50 PM CDT Respiratory Rate 16 11/02/2021 4:50 PM CDT Oxygen Saturation 98% 11/02/2021 4:50 PM CDT Inhaled Oxygen Concentration - - Weight 83 kg (183 lb) 11/02/2021 4:50 PM CDT Height 172.7 cm (5' 8) 11/02/2021 4:50 PM CDT Body Mass Index 27.83 11/02/2021 4:50 PM CDT Plan of Treatment Health Maintenance Due Date Last Done Comments Colorectal Cancer Screening Colonoscopy (10 Years) 1979 Annual Physical 08/11/1982 Hepatitis C 08/11/1997 Hepatitis B Vaccines (1 of 3 - 19+ 3-dose series) 08/11/1998 HPV Vaccines (1 - 3-dose SCD M series) 08/11/2006 COVID-19 Vaccine (2023-2 5 season) 2024 DTaP, Tdap and Td Vaccines ( 2 - Td or Tdap) 11/03/2031 11/02/2021 Meningococcal B Vaccine Aged Out No l onger eligible based on patient's age to complete this topic Meningococcal Vaccine Aged Out No magaly fozia eligible based on patient's age to complete this topic Pneumococcal Vaccine: Pediat rics (0 to 5 Years) and At-Risk Patients (6 to 49 Years) Aged Out No longer eligi ble based on patient's age to complete this topic RSV Immunizations Under 20 Months Aged Out No longer eligible based on patient's age to complete this topic Insurance [employer] Care Teams Heat Regulator Relationship Specialty Start Date End Date None, Provider, PCP - General 06/05/19
[2025-01-09 13:29] LABS: MALB Creatinine Ratio 9.3 mg/g (0-30)
[2025-01-09 14:30] LABS: Alanine Aminotransferase 46 U/L (6-50); Albumin Level 4.5 g/dL (3.5-5.1); Alkaline Phosphatase 73 U/L (38-126); Anion Gap 10 mmol/L (4-12); Aspartate Amino Transferase 43 U/L (17-59); Bilirubin,Total 0.4 mg/dL (0.2-1.3); Blood Urea Nitrogen 10 mg/dL (9-20); Calcium 9.9 mg/dL (8.4-10.2); Carbon Dioxide 26 mmol/L (22-30); Chloride 106 mmol/L (98-107); Cholesterol 199 mg/dL (0-200); Estimated Glomerular Filt Rate > 60; Glucose 113 mg/dL (65-110); HDL Direct 51 mg/dL; Sodium 142 mmol/L (137-145); Total Protein 7.8 g/dL (6.3-8.2); Triglycerides 169 mg/dL (<150)
[2025-01-09 14:31] LABS: Potassium 4.4 mmol/L (3.4-5.0)
[2025-01-09 14:47] LABS: Free T4 Free Thyroxine 0.66 ng/dL (0.78-2.19)
[2025-01-09 15:01] LABS: Thyroid Stimulating Hormone 16.100 uIU/mL (0.465-4.680)
[2025-01-09 15:20] LABS: Vitamin B12 561.0 pg/mL (239-931)
[2025-01-15 09:08] LABS: Free Testosterone (Direct) 4.1 pg/mL (6.8-21.5)
== END 2025-01-09 12:16 | disposition home or self-care (01) ==
LOC: ANHLAB 12:17
PROVIDERS: Visit Provider Nurse Practitioner Family
DX: E78.5 Hyperlipidemia, unspecified (principal); E11.9 Type 2 diabetes mellitus without complications; E03.9 Hypothyroidism, unspecified; I10 Essential (primary) hypertension; R79.89 Other specified abnormal findings of blood chemistry
CPT/HCPCS: 36415; 80053; 80061; 82043; 82306; 82607; 84402; 84403; 84439; 84443

== ENCOUNTER 2025-01-19 08:28 | Outpatient (CLI) | payer OTHER, SELFPAY ==
--- OUTSIDE RECORDS SUMMARY | 2025-01-19 08:30 | XMS_ITS | Continuity of Care Document ---
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 DoD MARITAL PROBLEM Inactive Condition DoD joint pain, localized in the knee Active Condition [facility] Observation For Abuse / Neglect Inactive Condition DoD HYPERLIPIDEMIA Active Condition DoD Vaccines Prophylactic Need Against DTP Active Condition DoD FOLLICULITIS Active Condition [facility] visit for: issue repeat prescription for medication Inactive Condition DoD joint pain fingers Active Condition DoD ADJUSTMENT DISORDER Active Condition Do D Blood Pressure Isolated Elevated Active Condition [facility] visit for: laboratory Active Condition [facility] visit for: issue repeat prescription Inactive Condition [facility] 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 DoD REFRACTIVE ERROR - MYOPIA [...] Reported Comments Source NO OUTPUT FOR NCID [id number] Drug allergy (disorder) active 10/30/[address] [place] [address]) Encounters Combined list of: 1) Encounters from [facility] Affairs facilities going backup to the last 18 months, not all [facility] inpatient encounters are included; 2) Encounters from the Department of [facility] facilities going backup to 280 months. Location Location Details Encounter Type Encounter Number Reason For Visit Attending Provider ADM Date DC Date Status Disposition Source [address] [place] [address])(Fam nelida Practice Non-GME FHI1) OUTPATIENT [id number] diabeti c JOVAN LR 01/18 Released w/o Limitations [address] [place] [address])(F amily Practic e Non-GME FHI1) [address] [place] [address])(Fam nelida Practice Non-GME FHI1) TELE CONSULT [id number] Referra l ZACH Kent 02/[address] [place] [address] [place] [facility])(F amily Practic e Non-GME FHI1) [address] [place] [address] [place] [facility])(Sco tt [facility] Tm Blue) TELE CONSULT [id number] refill TRAVIS ACOSTA 02/[address] [place] [address])(S cott [facility] Tm Blue) [address] [place] [address])(Sco tt [facility] Fam Res Tm Green) OUTPATIENT [id number] nvd x 10 hrs--FOZIA Mae 06/07 Released w/o Limitations [address] [place] [address])(S cott [facility] Res Tm Green) [address] [place] [address] [place] BISIVonnie ([facility]Sco tt [facility] Tm Blue) TELE CONSULT [id number] med refill RODRIGO GE 06/[address] [place] [address] [place] MORAN ([facility])(S cott OF FAMRES Tm Blue) [address] [place] [address] [place]AN ([facility])(Sco tt [facility] Tm Blue) OUTPATIENT [id number] DIABETE TRAVIS PETERS 06/29 Released w/o Limitations [address] [place] [address] [place] [facility] cott OF FAM[facility] Tm Blue[facility] [address] [place] [address] [place] [facility]co tt [facility] Tm Blue) TELE CONSULT [id number] FYI - Refills Authori TRAVIS Flanagan 09/[address] [place] [address] [place]AN ([facility])(S cott [facility] Tm Blue) [address] [place] [address] [place] [facility]Opt ometry) OUTPATIENT [id number] ey exam BRENDA ROD 02/14 Released w/o Limitations [address] [place] [address] [place] [facility]O ptometr y) [address] [place] [address] [place] [facility]co tt [facility] Tm Blue) OUTPATIENT [id number] 580 [id number] l# rt eye waterin g, hurting and sensiti ve to light AROLDO ZURITA 03/27 Released w/o Limitations [address] [place] [address] [place]AN ([facility])(S cott [facility] Tm Blue) [address] [place] [address] [place] [facility]co tt [facility] Tm Blue) OUTPATIENT [id number] f/u right eye TRAVIS ACOSTA 03/29 Released w/o Limitations [address] [place] [address] [place] MATHEWSB ([facility])(S cott [facility] Tm Blue) [address] [place] [address] [place] [employer] [facility]co tt [facility] Tm Blue) OUTPATIENT [id number] cold symptom s FRANCISCO NAGY 06/14 Released w/o Limitations [address] [place] [address] [place] MATHEWSB ([facility])(S cott [facility] Tm Blue[facility] [address] [place] [address] [place]co tt [facility] Tm Blue) TELE CONSULT [id number] FYI - Refill Request TRAVIS ACOSTA 06/[address] [place] [address] [place]AN ([facility])(S cott [facility] Tm Blue) [address] [place] [address] [place] ([facility])(Sco tt [facility] Tm Blue) OUTPATIENT [id number] diabeti c/med refill FOZIA MCNAIR 09/03 Released w/o Limitations [address] [place] [address] [place]AN ([facility])(S cott [facility] Blue) [address] [place] [address] [place] ([facility])(Sco tt [facility] Tm Blue) OUTPATIENT [id number] knee injury NIVIA FOZIA Shelton 10/29 Released with Work/Duty Limitations [address] [place] [address] [place]AN ([facility])(S cott [facility] Tm Blue) [address] [place] [address] [place] [facility] [facility]Opt ometry) OUTPATIENT [id number] routine eye exam... .wear contact s.....[phone] SUJIT MENDEZ 03/21 Released w/o Limitations [address] [place] [address] [place]AN ([facility])(O ptometr y) [address] [place] [address] [place]AN ([facility])(Sco tt [facility] Fam Res Tm Green) TELE CONSULT [id number] Supply reorder - PCM SONDRA Denson 05/[address] [place] [address] [place]AN ([facility])(S cott [facility]am Res Tm Green) [address] [place] [address] [place] [facility]co tt [facility] Tm Blue) TELE CONSULT [id number] med SONDRA Schaffer 06/[address] [place] [address] [place] [facility] [facility]S cott [facility] Tm Blue) [address] [place] [address] [place] [facility]Sco tt [facility] Tm Blue) OUTPATIENT [id number] follow up on diabete s [phone] TRAVIS ACOSTA 08/27 Released w/o Limitations [address] [place] [address] [place] M[place]AN ([facility])(S cott [facility] Tm Blue) [address] [place] [address] [place] [facility]co tt [facility] Fam Res Tm Green) OUTPATIENT [id number] swollen painful hand [phone] SHONDA SEN 09/09 Released w/o Limitations [address] [place] [address] [place] M[place]AN ([facility])(S cott [facility]am Res Tm Green) [address] [place] [address] [place]ORAN ([facility])(Sco tt [facility] Fam Res Tm Green) TELE CONSULT [id number] Medicat ion refill - PCM ZACH Acosta 11/[address] [place] [address] [place]AN ([facility])(S cott OF Fam Res Tm Green) [address] [place] [address] [place] MATHEWSB ([facility])(Sco tt [facility] Tm Blue) OUTPATIENT [id number] Infecte d skin on neck [phone] JOSEPH XAVIER 12/02 Released w/o Limitations [address] [place] [address] [place]S cott [facility] Tm Blue) [address] [place] [address] [place] [facility]co tt [facility] Tm Blue) OUTPATIENT [id number] f/u to FOZIA ARGUELLO 12/06 Released w/o Limitations [address] [place] [address] [place] [facility] [facility]S cott [facility] Blue) [address] [place] [address] [place] [facility]co tt [facility] Fam Res Tm Green) OUTPATIENT [id number] knee pain SHAHAB ROCHA 05/07 Released w/o Limitations [address] [place] [address] [place] [facility] [facility]S cott [facility]m Green) [address] [place] [address] [place] [facility] [facility]Sco tt [facility] Tm Blue) TELE CONSULT [id number] Prior Authori zation - PCM Dr Alfaro (seen by Dr Rocha) SHAHAB ROCHA 05/[address] [place] [address] [place] [facility]S cott [facility] Tm Blue) [address] [place] [address] [place] [facility] [facility]Opt ometry) OUTPATIENT [id number] routine eye exam SUJIT MENDEZ 05/21 Released w/o Limitations [address] [place] [address] [place] MATHEWSB ([facility])(O ptometr y[facility] [address] [place] [address] [place] [facility] tt [facility] Fam Res Tm Green) TELE CONSULT [id number] med refill FRANCISCO NAGY 06/[address] [place] [address] [place] [facility] [facility]S cott [facility] Fam Res Tm Green) [address] [place] [address] [place] [facility]co tt [facility] Fam Res Tm Green) TELE CONSULT [id number] med refill DRAGAN ALFARO 09/03 [facility] [place] BISIVonnie ([facility]S cott [facility] Fam Res Tm Green) [facility] [place] BISIVonnie ([facility])(Sco tt [facility] Fam Res Tm Green) TELE CONSULT [id number] med refill DRAGAN ALFARO 09[facility]03 [facility] [place] BISIVonnie ([facility])(S cott [facility] Fam Res Tm Green) [facility] [place] [facility]co tt [facility] Fam Res Tm Green) OUTPATIENT [id number] diabeti c check up JOSEFINASHAHAB 11/18 Released w/o Limitations [facility] [place] BISIVonnie ([facility])(S cott [facility] Fam Res Tm Green) [facility] [place] [facility]co tt [facility] Fam Res Tm Green) OUTPATIENT [id number] F/U diabete s [phone] DRAGAN ALFARO 06/09 Released w/o Limitations [facility] [place] [facility]S cott [facility] Res Tm Green) [facility] [place]Sco tt [facility] Fam Res Tm Green) OUTPATIENT [id number] f/u labs/mr hernandez JOSEFINASHAHAB 07/14 Released w/o Limitations [address] [place] [address] [place] [facility])(S [facility] Fam Res Tm Green) [facility](87 [facility] Affiliate ) TELE CONSULT [id number] insulin med refill SARAH MCGILL 11/25 [facility](8 7 [facility] Affilia te) [facility] Medical [facility]([address] [place] [address] 5) OUTPATIENT [id number] initial PCM appt/di abetic pt KEITH ZAMBRANO 12/28 Released w/o Limitations [facility] Medical [facility](8 7 [facility] 5) [facility](87 Disease Managemen t) TELE CONSULT [id number] DM Assessm ent JOSÉ LY 12/31 [facility] Medical [facility](8 7 Disease Managem ent) [address] [place] [address]( Nutrition Clinic) OUTPATIENT [id number] Diabete s Nutriti on LEANNE ALVARADO 01/05 Released w/o Limitations [address] [place] [address](8 7 Nutriti on Clinic) [address] [place] [address](87 [facility] 5) TELE CONSULT [id number] Labs KEITH ZAMBRANO 01/[address] [place] [address](8 7 [facility] 5) [address] [place] [address] [place] [facility] [facility]) OUTPATIENT [id number] cold symptom s [id number] NUNU, MARC Miya 08/30 Released w/o Limitations [address] [place] [address] [place] [facility]) [address] [place] [address] [place] [facility]Sco tt [facility] Blue) TELE CONSULT [id number] Notes Entered by: SONIA BROWNE CIA 01 Sep 2011 1305 ------- ------- ------- ------- -- Med refill - Raquel t - cad/[facility] ISAI TABARES 08/[address] [place] [address] [place] [facility] T[facility] Blue) [address] [place] [address] [place] [facility]Sco tt Disease Managemen t) TELE CONSULT [id number] Notes Entered by: WILLOW LAZO 27 Jun 2012 1046 ------- ------- ------- ------- -- Disease Managem ent - Sweigar t PCM SURYA LUCAS 06/[address] [place] [address] [place] [facility] [facility]S cott Disease Managem ent) [address] [place] [address] [place] [facility]) OUTPATIENT [id number] f/u diabete s check/l ab results /meds modific ation LISA WAYNE 07/12 Released w/o Limitations [address] [place] [address] [place] [facility]S cott [facility]m Blue) [address] [place] [address] [place] [facility]Sco tt [facility] Res Tm Green) TELE CONSULT [id number] Notes Entered by: WILLOW LAZO 14 Sep 2012 1425 ------- ------- ------- ------- -- Diabete s Managem ent Update - Sweigar t PCM WILLOW LUCASPEACE Ramirez 09/[address] [place] [address] [place] [facility]IS[facility]nie [facility]S cott [facility] Fam Res Tm Green) [address] [place] [address] [place]IS[place] [facility]Sco tt [facility] Res Tm Green) TELE CONSULT [id number] Notes Entered by: WILLOW LAZO 24 Oct 2012 1608 ------- ------- ------- ------- -- Record Review Diabete s Managem ent - PCM Sweigar t LANCE SURYA A 10/[address] [place] [address] [place] [facility]IS[facility]nie [facility]S cott [facility] Fam Res Tm Green) [address] [place] [address] [place]IB [facility] Blue) OUTPATIENT [id number] f/u diabete s check/d iscuss lab results ,left knee pain f/u. LISA WAYNE 11/07 Released w/o Limitations [address] [place] [address] [place] [facility]S cott [facility] Tm Blue) [address] [place] [address] [place] BISIB [facility]Sco tt [facility] Res Tm Green) TELE CONSULT [id number] Notes Entered by: WILLOW LAZO 15 Nov 2012 1034 ------- ------- ------- ------- -- Diabete s managem ent f/u - PCM SURYA Mccauley 11/[address] [place] [address] [place] BISIVonnie ([facility]S cott [facility] Fam Res Tm Green) [address] [place] [address] [place]Sco tt [facility] Tm Blue) OUTPATIENT [id number] f/u diabete s check/d iscuss lab results PAULINE CASTANEDA 12/07 Released w/o Limitations [address] [place] [address] [place] BISIB ([facility])(S cott [facility] Tm Blue[facility] [address] [place] [address] [place] [employer] [facility]Sco tt [facility] Tm Blue) TELE CONSULT [id number] Notes Entered by: MARY OSMAN 26 Mar 2013 0823 ------- ------- ------- ------- -- Retro MARY Amaro 03/[address] [place] [address])(S cott [facility] Tm Blue) [address] [place] [address])(Sco tt [facility] Tm Blue) TELE CONSULT [id number] Notes Entered by: LICHA IBANEZ 27 Mar 2013 1149 ------- ------- ------- ------- -- Medicat ion renewal - Luis Angel - PAULINE CASTANEDA 03/[address] [place] [address])(S cott [facility] Tm Blue) [address] [place] [address])(Sco tt [facility] Tm Blue) TELE CONSULT [id number] Notes Entered by: MELVA GONZALEZ 28 Mar 2013 1236 ------- ------- ------- ------- -- Med refill/ luis angel / PILY IVORY 03/[address] [place] [address])(S cott [facility] Tm Blue) [address] [place] [address])(Sco tt [facility] Tm Blue) OUTPATIENT [id number] f/u diabete s PAULINE CASTANEDA 04/09 Released w/o Limitations [address] [place] [address])(S cott [facility] Tm Blue) [address] [place] [address])(Sco tt [facility] Tm Blue) OUTPATIENT [id number] follow up for labs, diabete s [phone] MARIA LUISA PICKARD 05/08 Released w/o Limitations [address] [place] [address])(S cott [facility] Tm Blue) [address] [place] [address])(Sco tt [facility] Fam Res Tm Gold) TELE CONSULT [id number] Notes Entered by: RADHA LUONG 13 Jun 2013 1440 ------- ------- ------- ------- -- Med Refill- Luis Angel / FOZIA MENDEZ 06/[address] [place] [address])(S [facility] Fam Res Tm Gold) [address] [place] [address])(Sco tt [facility] Res Tm Gold) TELE CONSULT [id number] Notes Entered by: JANY SIMS 02 Jul 2013 1103 ------- ------- ------- ------- -- Follow up lab request Luis Angel PAULINE CASTANEDA 07/[address] [place] [address])(S [facility] Fam Res Tm Gold) [address] [place] [address])([facility] Fam Res Tm Gold) OUTPATIENT [id number] 3mo diabete s check up/618. [phone] PAULINE CASTANEDA 07/13 Released w/o Limitations [address] [place] [address])(S [facility] Fam Res Tm Gold) [address] [place] [address])(Lisa alejandre [facility]) TELE CONSULT [id number] Notes Entered by: RAMONA QUIGLEY 26 Nov 2013 1121 ------- ------- ------- ------- -- Diabete s Managem ent RAMONA QUIGLEY 11/26 Other Not Elsewhere Classified [address] [place] [address])(Vonnie gilbert [facility]) Procedures Combined list of: 1) Procedures from Department of Veterans Affairs facilities going back up to thelast 18 months, not all VA non-surgical procedures are included; 2) All procedures from the Department of Defense facilities. Procedure Procedure Type Code Date Perfomer Comments Sourc e MEDICAL NUTRITION THERAPY; GROUP (2 OR MORE INDIVIDUAL(S)), EACH 30 MINUTES 1 [facility] DISEASE MANAGEMENT PROGRAM; INITIAL ASSESSMENT AND INITIATION OF THE PROGRAM 4 [facility] TELE ASSESS & MGT SRV PROV QUAL NONPHYS HLTH CARE PRO TO EST PAT,PARENT,GUARD NOT ORIG REL ASSESS & MGT SRV PROV W/IN PREV 7 DAYS NOR LEAD ASSESS & MGT SRV/PX W/IN NXT 24 HR/SOON APT;5-10 MIN MED DIS 4 DoD TELE ASSESS & MGT SRV PROV QUAL NONPHYS HLTH CARE PRO TO EST PAT,PARENT,GUARD NOT ORIG REL ASSESS & MGT SRV PROV W/IN PREV 7 DAYS NOR LEAD ASSESS & MGT SRV/PX W/IN NXT 24H/SOON APT; 21-30 MIN MED DIS 3 DoD TELE ASSESS & MGT SRV PROV QUAL NONPHYS HLTH CARE PRO TO EST PAT,PARENT,GUARD NOT ORIG REL ASSESS & MGT SRV PROV W/IN PREV 7 DAYS NOR LEAD ASSESS & MGT SRV/PX W/IN NXT 24H/SOON APT; 11-20 MIN MED DIS 2 DoD DIABETIC INDICATOR; RETINAL EYE EXAM, DILATED, BILATERAL 9 [facility] TETANUS, DIPHTHERIA TOXOIDS AND ACELLULAR PERTUSSIS VACCINE (TDAP), WHEN ADMINISTERED TO INDIVIDUALS 7 YEARS OR OLDER, FOR INTRAMUSCULAR USE 9 [facility] APPLICATION OF FINGER SPLINT; STATIC 9 [facility] DIABETIC INDICATOR; RETINAL EYE EXAM, DILATED, BILATERAL 8 [place] [facility] INFECTIOUS AGENT ANTIGEN DETECTION BY IMMUNOASSAY WITH DIRECT OPTICAL (IE, VISUAL) OBSERVATION; STREPTOCOCCUS, GROUP A 8 [facility] PRESCRIPTION OF OPTICAL AND PHYSICAL CHARACTERISTICS OF AND FITTING OF CONTACT LENS, WITH MEDICAL SUPERVISION OF ADAPTATION; CORNEAL LENS, BOTH EYES, EXCEPT FOR APHAKIA 7 [facility] Disease management program; initial a e ment and initiation of the program 4 RAMONA QUIGLEY [facility] Non-Physician Phone Call To Patient/Provider Brief (5-10min) Non-Physician Phone Call To Patient/Provider Brief (5-10min) [id number] FOZIA MENDEZ DoD Non-Physician Phone Call To Pt/Provider Lengthy (21-30 min) Non-Physician Phone Call To Pt/Provider Lengthy (21-30 min) [id number] 3 SURYA LUCAS [facility] Non-Physician Phone Call To Pt/Provider Intermed (11-20 min) Non-Physician Phone Call To Pt/Provider Intermed (11-20 min) [id number] 2 ISAI TABARES [facility] Medical Nutrition Therapy Group (2 or More Individual(s)) Medical Nutrition Therapy Group (2 or More Individual(s)) [id number] 1 MISTY LEANNE L [facility] Prescription & Fitting Bilateral Corneal Lenses (Not Aphakia Prescription & Fitting Bilateral Corneal Lenses (Not Aphakia 63110 9 ANDREA, SUJIT W DoD Diabetic indicator; retinal eye exam, dilated, bilateral 9 ANDREA, SUJIT W DoD Determination Of Refractive State Determination Of Refractive State [id number] 9 ANDREA, SUJIT W DoD Visual Buitrago Test Intermediate Examination Visual Buitrago Test Intermediate Examination 97218 9 ANDREA, SUJIT W DoD Ophthalmological Prior Patient Start Comprehensive Care Ophthalmological Prior Patient Start Comprehensive Care 55618 9 ANDREA, SUJIT W DoD Tdap Vaccine Tdap Vaccine 27512 9 FOZIA MCNAIR [facility] Immunization Administration One Vaccine Immunization Administration One Vaccine 26146 9 FOZIA MCNAIR [facility] Orthopedic Splinting Finger Static Orthopedic Splinting Finger Static 33381 9 SHONDA SEN [facility] Prescription & Fitting Bilateral Corneal Lenses (Not Aphakia Prescription & Fitting Bilateral Corneal Lenses (Not Aphakia 80687 8 ANDREA, SUJIT W DoD Determination Of Refractive State Determination Of Refractive State 54011 8 ANDREA, SUJIT W DoD Visual Buitrago Test Intermediate Examination Visual Buitrago Test Intermediate Examination 08493 8 ANDREA, SUJIT W DoD Ophthalmological Prior Patient Start Comprehensive Care Ophthalmological Prior Patient Start Comprehensive Care 62679 8 ANDREA, SUJIT W DoD Diabetic indicator; retinal eye exam, dilated, bilateral 8 ANDREA, SUJIT W DoD Rapid Antigen Identification Streptococcus Group A Beta Hemolytic Rapid Antigen Identification Streptococcus Group A Beta Hemolytic 16185 8 FRANCISCO NAGY DoD Visual Buitrago Test Limited Examination Visual Buitrago Test Limited Examination 90434 7 BRENDA ROD DoD Ophthalmological New Patient Start Comprehensive Care Ophthalmological New Patient Start Comprehensive Care 55999 7 BRENDA ROD DoD Prescription & Fitting Bilateral Corneal Lenses (Not Aphakia Prescription & Fitting Bilateral Corneal Lenses (Not Aphakia 65393 7 BRENDA ROD DoD Determination Of Refractive State Determination Of Refractive State 7 BRENDA ROD Social History Combined list of available smoking, tobacco, and other social history from Department of Defense and Veterans Affairs facilities. Social History Type Response Date Comment Sour e This section is an empty social history section. DoD
--- OUTSIDE RECORDS SUMMARY | 2025-01-19 08:31 | XMS_ITS | Clinical Summary ---
Author Organization [facility] Address [facility] [place] [address] Care Team Providers Care Senior Java J2Ee Developer Name Role Phone None, Provider MD Primary [...] [facility] Care Teams Senior Java J2Ee Developer Relationship Specialty Start Date End Date None, Provider, PCP - General 06/05/19
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
[2025-01-19 09:15] LABS: Anion Gap 6 mmol/L (4-12); Blood Urea Nitrogen 18 mg/dL (9-20); Calcium 9.3 mg/dL (8.4-10.2); Carbon Dioxide 30 mmol/L (22-30); Chloride 103 mmol/L (98-107); Cholesterol 172 mg/dL (0-200); Estimated Glomerular Filt Rate > 60; Glucose 120 mg/dL (65-110); HDL Direct 45 mg/dL; Potassium 4.0 mmol/L (3.4-5.0); Sodium 139 mmol/L (137-145); Triglycerides 137 mg/dL (<150)
[2025-01-19 09:50] LABS: Free T4 Free Thyroxine 1.06 ng/dL (0.78-2.19)
[2025-01-19 09:52] LABS: Thyroid Stimulating Hormone 9.650 uIU/mL (0.465-4.680)
[2025-01-20 06:07] LABS: FSH 5.0 mIU/mL (1.5-12.4); LH 7.2 mIU/mL (1.7-8.6)
== END 2025-01-19 08:29 | disposition home or self-care (01) ==
LOC: ANHLAB 08:29
PROVIDERS: Visit Provider Nurse Practitioner Family
DX: R53.83 Other fatigue (principal); R79.89 Other specified abnormal findings of blood chemistry; E10.65 Type 1 diabetes mellitus with hyperglycemia; E78.5 Hyperlipidemia, unspecified; E03.9 Hypothyroidism, unspecified
CPT/HCPCS: 36415; 80048; 80061; 83001; 83002; 84270; 84439; 84443

== ENCOUNTER 2025-04-06 09:52 | Outpatient (CLI) | payer OTHER, SELFPAY ==
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
--- OUTSIDE RECORDS SUMMARY | 2025-04-06 09:56 | XMS_ITS | Clinical Summary ---
Author Organization [facility] Address [facility] [place] [address] Care Team Providers Care Optometrist Name Role Phone None, Provider MD Primary [...] 3-dose SCD M series) 08/11/2006 COVID-19 Vaccine (2024-2 6 season) 2025 Influenza Adult (#1) 2025 03/06/2020, 03/07/2018 DTaP, Tdap and Td Vaccines ( 2 - Td or Tdap) 11/03/2031 11/02/2021 Hepatitis A Vaccines Aged Out No long er eligible based on patient's age to complete this topic Meningococcal B Vaccine Aged Out No l onger eligible based on patient's age to complete this topic Meningococcal Vaccine Aged Out No magaly fozia eligible based on patient's age to complete this topic Pneumococcal Vaccine: Pediatrics (0 to 5 Years) and At-Risk Patients (6 to 49 Years) Aged Out No longer eligible b ased on patient's age to complete this topic RSV Immunizations Under 20 Months Aged Out No longer eligible b ased on patient's age to complete this topic Insurance [employer] [facility] Care Teams Optometrist Relationship Specialty Start Date End Date None, Provider, PCP - General 06/05/19
[2025-04-06 10:44] LABS: Free T4 Free Thyroxine 0.88 ng/dL (0.78-2.19)
[2025-04-06 10:56] LABS: Thyroid Stimulating Hormone 16.000 uIU/mL (0.465-4.680)
== END 2025-04-06 09:53 | disposition home or self-care (01) ==
LOC: ANHLAB 09:53
PROVIDERS: Visit Provider Nurse Practitioner Family
DX: E03.9 Hypothyroidism, unspecified (principal)
CPT/HCPCS: 36415; 84439; 84443